=== PATIENT | female | born 1990 | race African-American/Black ===

== ENCOUNTER 2023-05-28 08:36 | Emergency (ER) | payer SELFPAY ==
[2023-05-28] MEDS ORDERED: Sodium Chloride 0.9% 10 ML Syringe FLUSH PRN (08:39)
[2023-05-28 09:14] LABS: APPEARANCE,URINE CLEAR (Clear); BILIRUBIN,URINE NEGATIVE (Negative); COLOR,URINE YELLOW (Yellow); GLUCOSE,URINE NEGATIVE (Negative); KETONES,URINE NEGATIVE (Negative); LEUKOCYTE ESTERASE,URINE NEGATIVE (Negative); NITRITE,URINE NEGATIVE (Negative); OCCULT BLOOD,URINE NEGATIVE (Negative); PROTEIN,URINE NEGATIVE (Negative); UROBILINOGEN,URINE 0.2 (0.2-1.0)
[2023-05-28 09:17] LABS: BASOPHILS PERCENT AUTO 0.4 % (0.0-1.0); EOSINOPHILS ABSOLUTE AUTO 0.3 K/mm3 (0.0-0.4); EOSINOPHILS PERCENT AUTO 4.1 % (0.0-6.0); HEMATOCRIT 36.7 % (37.0-47.0); HEMOGLOBIN 12.1 gm/dl (12.0-16.0); IMMATURE GRAN ABSOLUTE AUTO 0.01 K/mm3 (0.00-0.05); IMMATURE GRAN PERCENT AUTO 0.1 % (0.0-0.4); LYMPHOCYTES ABSOLUTE AUTO 2.7 K/mm3 (1.0-4.8); LYMPHOCYTES PERCENT AUTO 38.5 % (24.0-44.0); MEAN CORPUSCULAR HEMOGLOBIN 31.4 pg (28.0-32.0); MEAN CORPUSCULAR VOLUME 95.3 fl (83.0-99.0); MEAN PLATELET VOLUME 10.6 fl (9.4-12.3); MONOCYTES ABSOLUTE AUTO 0.5 K/mm3 (0.0-0.8); MONOCYTES PERCENT AUTO 6.5 % (0.0-8.0); NEUTROPHILS ABSOLUTE AUTO 3.6 K/mm3 (1.8-7.7); NEUTROPHILS PERCENT AUTO 50.4 % (41.0-71.0); PLATELET COUNT,PLT 298 K/mm3 (150-400); RED BLOOD CELL COUNT 3.85 M/mm3 (4.10-5.30); WHITE BLOOD CELL COUNT,WBC 7.09 K/mm3 (3.9-11.3)
[2023-05-28 09:21] LABS: BARBITURATE SCREEN,URINE NEGATIVE (CUTOFF=200); BENZODIAZEPINES SCREEN,URINE NEGATIVE (CUTOFF=150); BUPRENORPHINE SCREEN,URINE NEGATIVE (CUTOFF=10); METHADONE SCREEN, URINE NEGATIVE (CUTOFF=200); METHAMPHETAMINES SCREEN, URINE NEGATIVE (CUTOFF=500); OXYCODONE SCREEN,URINE NEGATIVE (CUT0FF=100); THC SCREEN,URINE 20 NG/ML NEGATIVE (CUTOFF=50)
[2023-05-28 09:23] LABS: AMPHETAMINES SCREEN, URINE NEGATIVE (CUTOFF=500)
[2023-05-28 09:35] LABS: BACTERIA,URINE FEW /hpf (FEW); MUCUS,URINE FEW /hpf (FEW); RBC,URINE 0-5 /hpf (0-5); SQUAMOUS EPITHELIAL CELLS,UR 0-5 /hpf (0-5); WBC,URINE 0-5 /hpf (0-5)
[2023-05-28 09:38] LABS: A/G RATIO 0.7 (1-2); ALBUMIN 3.2 g/dl (3.4-5.0); BILIRUBIN TOTAL 0.3 mg/dL (0.2-1.0); BUN/CREATININE RATIO 15.7 (14-18); CALCIUM 8.7 mg/dL (8.5-10.1); CREATININE 0.7 mg/dL (0.55-1.02); EST CRCL DRUG DOSING (CG) 112.2 mL/min; MAGNESIUM 1.6 mg/dL (1.8-2.4); PROTEIN TOTAL,TP 7.9 g/dl (6.4-8.2)
== END 2023-05-28 11:36 | disposition home or self-care (01) ==
LOC: JD.ED 08:36
DX: T39.312A Poisoning by propionic acid derivatives, intentional self-harm, initial encounter (principal)
CPT/HCPCS: 36415; 71046; 71046-26; 80053; 80143; 80179; 80306; 80307; 81001; 83735; 85025; 93005; 99284; 99285

== ENCOUNTER 2023-07-07 19:21 | Emergency (ER) | payer SELFPAY ==
[2023-07-07] MEDS ORDERED: Acetaminophen 325 MG Tab PO ONE (19:44)
[2023-07-07] MEDS ORDERED: Ibuprofen 600 MG Tab PO ONE (19:44)
== END 2023-07-07 20:05 | disposition home or self-care (01) ==
LOC: JD.ED 19:21
DX: S91.201A Unspecified open wound of right great toe with damage to nail, initial encounter (principal); W19.XXXA Unspecified fall, initial encounter
CPT/HCPCS: 99283; A9270

== ENCOUNTER 2024-03-19 00:27 | Inpatient (IN) | payer MEDICAID ==
[~2024-03-19 00:27] MED LIST: Sodium Chloride 0.9% 10 ML Syringe FLUSH PRN
[2024-03-19] MEDS ORDERED: ceFAZolin 2 GM in Sodium Chloride 0.9% 50 ML IV ONE (05:30)
[2024-03-19] MEDS ORDERED: Oxytocin/Lactated Ringers 30 UNIT/500 ML BAG IV SCH (05:30)
[2024-03-19] MEDS: Lactated Ringers 1,000 ML IV SCH (06:02)
[2024-03-19] MEDS ORDERED: Oxytocin/0.9 % Sodium Chloride 30 UNIT/500 ML BAG IV SCH (06:15)
[2024-03-19 06:47] LABS: BASOPHILS PERCENT AUTO 0.1 % (0.0-1.0); EOSINOPHILS ABSOLUTE AUTO 0.1 K/mm3 (0.0-0.4); EOSINOPHILS PERCENT AUTO 1.6 % (0.0-6.0); HEMATOCRIT 36.5 % (37.0-47.0); HEMOGLOBIN 12.3 gm/dl (12.0-16.0); IMMATURE GRAN ABSOLUTE AUTO 0.03 K/mm3 (0.00-0.05); IMMATURE GRAN PERCENT AUTO 0.4 % (0.0-0.4); LYMPHOCYTES ABSOLUTE AUTO 2.5 K/mm3 (1.0-4.8); LYMPHOCYTES PERCENT AUTO 35.4 % (24.0-44.0); MEAN CORPUSCULAR HEMOGLOBIN 31.8 pg (28.0-32.0); MEAN CORPUSCULAR HGB CONC 33.7 g/dl (32.0-36.0); MEAN CORPUSCULAR VOLUME 94.3 fl (83.0-99.0); MEAN PLATELET VOLUME 11.8 fl (9.4-12.3); MONOCYTES ABSOLUTE AUTO 0.6 K/mm3 (0.0-0.8); MONOCYTES PERCENT AUTO 8.1 % (0.0-8.0); NEUTROPHILS ABSOLUTE AUTO 3.8 K/mm3 (1.8-7.7); NEUTROPHILS PERCENT AUTO 54.4 % (41.0-71.0); PLATELET COUNT,PLT 206 K/mm3 (150-400); RED BLOOD CELL COUNT 3.87 M/mm3 (4.10-5.30); WHITE BLOOD CELL COUNT,WBC 7.04 K/mm3 (3.9-11.3)
[2024-03-19] MEDS ORDERED: Morphine PF 10 MG/10 ML SDV ONE (07:07)
[2024-03-19] MEDS ORDERED: ePHEDrine 50 MG/ML SDV ONE (07:11)
[2024-03-19] MEDS: Metoclopramide 10 MG/2 ML SDV IVPUSH ONE (07:16)
[2024-03-19] MEDS: Citric Acid/Sodium Citrate Solution 30 ML Cup PO ONE (07:16)
[2024-03-19] MEDS ORDERED: ceFAZolin 2 GM Vial ONE (07:42)
[2024-03-19] MEDS ORDERED: Ketorolac 30 MG/ML SDV ONE (08:08)
[2024-03-19] MEDS ORDERED: Sodium Chloride 0.9% 10 ML Syringe FLUSH SCH (09:00)
[2024-03-19] MEDS ORDERED: fentaNYL 100 MCG/2 ML SDV IVPUSH PRN (09:01)
[2024-03-19] MEDS ORDERED: Ondansetron 4 MG/2 ML SDV IVPUSH PRN (09:01)
[2024-03-19] MEDS ORDERED: diphenhydrAMINE 50 MG/ML SDV IVPUSH PRN (09:01)
[2024-03-19] MEDS ORDERED: ePHEDrine 50 MG/ML SDV IVPUSH PRN (10:04)
[2024-03-19] MEDS ORDERED: Naloxone 0.4 MG/ML SDV IVPUSH PRN (10:04)
[2024-03-19] MEDS ORDERED: Acetaminophen/oxyCODONE 325-5 MG Tab PO PRN (10:04)
[2024-03-19] MEDS: Dextrose 5%-Lactated Ringers 1,000 ML IV SCH (10:27)
[2024-03-19] MEDS: Ketorolac 30 MG/ML SDV IVPUSH SCH (14:34)
[2024-03-19] MEDS: diphenhydrAMINE 50 MG/ML SDV IVPUSH PRN (14:34)
[2024-03-19] MEDS: Simethicone 80 MG Tab.Chew PO SCH (14:35)
[2024-03-19 16:49] LABS: HEMATOCRIT 32.4 % (37.0-47.0); MEAN CORPUSCULAR HEMOGLOBIN 32.2 pg (28.0-32.0); MEAN CORPUSCULAR VOLUME 94.7 fl (83.0-99.0); MEAN PLATELET VOLUME 11.7 fl (9.4-12.3); PLATELET COUNT,PLT 188 K/mm3 (150-400); RED BLOOD CELL COUNT 3.42 M/mm3 (4.10-5.30); WHITE BLOOD CELL COUNT,WBC 10.67 K/mm3 (3.9-11.3)
[2024-03-19] MEDS: Docusate Sodium 100 MG Cap PO SCH (20:29)
[2024-03-19] MEDS ORDERED: Magnesium Hydroxide 400 MG/5 ML Susp 30 ML Cup PO PRN (21:00)
[2024-03-20] MEDS: Acetaminophen/oxyCODONE 325-5 MG Tab PO PRN (00:15)
[2024-03-20 07:34] LABS: BASOPHILS PERCENT AUTO 0.1 % (0.0-1.0); EOSINOPHILS ABSOLUTE AUTO 0.1 K/mm3 (0.0-0.4); EOSINOPHILS PERCENT AUTO 1.2 % (0.0-6.0); HEMATOCRIT 30.9 % (37.0-47.0); HEMOGLOBIN 10.5 gm/dl (12.0-16.0); IMMATURE GRAN ABSOLUTE AUTO 0.04 K/mm3 (0.00-0.05); IMMATURE GRAN PERCENT AUTO 0.5 % (0.0-0.4); LYMPHOCYTES PERCENT AUTO 24.8 % (24.0-44.0); MEAN CORPUSCULAR HEMOGLOBIN 32.1 pg (28.0-32.0); MEAN CORPUSCULAR VOLUME 94.5 fl (83.0-99.0); MEAN PLATELET VOLUME 11.6 fl (9.4-12.3); MONOCYTES ABSOLUTE AUTO 0.8 K/mm3 (0.0-0.8); MONOCYTES PERCENT AUTO 9.7 % (0.0-8.0); NEUTROPHILS ABSOLUTE AUTO 5.1 K/mm3 (1.8-7.7); NEUTROPHILS PERCENT AUTO 63.7 % (41.0-71.0); PLATELET COUNT,PLT 181 K/mm3 (150-400); RED BLOOD CELL COUNT 3.27 M/mm3 (4.10-5.30); WHITE BLOOD CELL COUNT,WBC 8.07 K/mm3 (3.9-11.3)
[2024-03-20] MEDS: Prenatal Multivitamin with Calcium/Folic Acid/Iron Tab PO SCH (09:27)
[2024-03-20] MEDS: Ibuprofen 600 MG Tab PO SCH (09:28)
== END 2024-03-21 19:10 | disposition home or self-care (01) | DRG 788 ==
LOC: JD.OB 05:42
PROVIDERS: ADMIT Obstetrics & Gynecology; ATTEND Obstetrics & Gynecology
PROC: 10D00Z1 Extraction of Products of Conception, Low, Open Approach (ICD-10-PCS; principal; 2024-03-19 08:00)
DX: O24.420 Gestational diabetes mellitus in childbirth, diet controlled (principal); Z37.0 Single live birth; O34.211 Maternal care for low transverse scar from previous cesarean delivery; Z3A.39 39 weeks gestation of pregnancy
CPT/HCPCS: 36415; 59025; 82947; 85025; 85027; 86592; 86850; 86900; 86901; A9270-GY; J0690; J1200; J1885; J2274; J2765; J3490; J7120; J7121; J7999